=== PATIENT | female | born 1990 | race Caucasian/White ===

== ENCOUNTER 2016-04-29 11:18 | Emergency (ER) | payer OTHER ==
[~2016-04-29] VITALS: Ht 162.6 cm; Wt 80.0 kg
[~2016-04-29 11:18] MED LIST: HYDR-3533 PO; LEVE750T8 PO; ONDA4 PO
[2016-04-29 11:19] VITALS: BP 129/68; PULSE 66; RESP 16; TEMP 98.1; O2SAT 98
--- NOTE | 2016-04-29 11:43 | PD ---
HPI Chief Complaint: Abdominal Pain Time Seen by Provider: 11:43 Travel History International Travel<30 days: No Contact w/Intl Traveler<30days: No Traveled to known affect area: No History of Present Illness HPI 25 year-old female with history of epilepsy presents to the emergency department for evaluation of constipation, nausea vomiting worsening over the last 4 days. Patient states this happens every few months to her. Reports generalized abdominal pain with no exacerbating or alleviating factors. States she has been unable to take her Keppra for 4 days due to the nausea and vomiting. Stool and emesis is without any dorian red blood. No coffee-ground emesis. No black tarry stools. Subjective fever and chills. No chest pain or tightness. No difficulty breathing. No other symptoms to report at this time. PFSH Past Medical History Arthritis: No Asthma: No Anxiety: No Depression: No Heart Rhythm Problems: No Cancer: No Cardiovascular Problems: No High Cholesterol: No Chest Pain: No Congestive Heart Failure: No COPD: No Cerebrovascular Accident: No Diabetes: No Diminished Hearing: No Endocrine: No Gastrointestinal Disorders: Yes GERD: No Genitourinary: No Hiatal Hernia: No Immune Disorder: No Implanted Vascular Access Dvce: No Musculoskeletal: No Neurologic: Yes (EPILEPSY) Psychiatric: No Reproductive: No Respiratory: No Immunizations Current: Yes Migraines: No Seizures: Yes Sleep Apnea: No Thyroid Disease: No Ulcer: No ?: Not LMP: 04/20/16 : 1 Para: 1 Past Surgical History Abdominal Surgery: No Cardiac Surgery: No Ear Surgery: No Endocrine Surgery: No Eye Surgery: No Genitourinary Surgery: No Gynecologic Surgery: No Oral Surgery: Yes (tonisills, adenoids) Thoracic Surgery: No Tonsillectomy: Yes (& adenoids ) Other Surgery: Yes Social History Alcohol Use: No Tobacco Use: No Substance Use: Yes (MARIJUANA ) Allergies-Medications (Allergen,Severity, Reaction): Coded Allergies: No Known Allergies (Verified , 04/29/16) Reported Meds & Prescriptions Reported Meds & Active Scripts Active Phenergan (Promethazine HCl) 25 Mg Tab 25 Mg PO Q6H PRN 3 Days Reported Keppra (Levetiracetam) 750 Mg Tab 750 Mg PO BID Review of Systems Except as stated in HPI: all other systems reviewed are Neg Physical Exam Narrative GENERAL: Well-nourished female patient, lying in a position, tearful SKIN: Warm and dry. HEAD: Atraumatic. Normocephalic. EYES: Pupils equal and round. No scleral icterus. No injection or drainage. ENT: No nasal bleeding or discharge. Mucous membranes pink and moist. NECK: Trachea midline. No JVD. CARDIOVASCULAR: Regular rate and rhythm. No murmur appreciated. RESPIRATORY: No accessory muscle use. Clear to auscultation. Breath sounds equal bilaterally. GASTROINTESTINAL: Abdomen soft, nondistended. Patient reports inconsistent but generalized tenderness to palpation.. Hepatic and splenic margins not palpable. MUSCULOSKELETAL: No obvious deformities. No clubbing. No cyanosis. No edema. NEUROLOGICAL: Awake and alert. No obvious cranial nerve deficits. Motor grossly within normal limits. Normal speech. Data Data Last Documented VS Vital Signs Date Time Temp Pulse Resp B/P Pulse Ox O2 Delivery O2 Flow Rate FiO2 04/29/16 18:30 66 16 140/74 98 04/29/16 16:28 Room Air 04/29/16 11:19 98.1 Orders Complete Blood Count With Diff (04/29/16 11:38) Comprehensive Metabolic Panel (04/29/16 11:38) Lipase (04/29/16 11:38) Prothrombin Time / Inr (Pt) (04/29/16 11:38) Act Partial Throm Time (Ptt) (04/29/16 11:38) Urinalysis - C+S If Indicated (04/29/16 11:38) Abdomen, Flat & Upright (04/29/16 ) Ed Urine Pregnancytest Poc (04/29/16 11:38) Influenzae A/B Antigen (04/29/16 11:38) Gc And Chlamydia Pcr (04/29/16 11:50) Ondansetron Inj (Zofran Inj) (04/29/16 12:30) Sodium Chlor 0.9% 1000 Ml Inj (Ns 1000 M (04/29/16 12:25) Sodium Chloride 0.9% Flush (Ns Flush) (04/29/16 12:30) Levetiracetam 1000 Mg Inj (Keppra 1000 M (04/29/16 12:30) Levetiracetam Inj (Keppra Inj) (04/29/16 12:30) Sucralfate Liq (Carafate Liq) (04/29/16 12:45) Ct Abd/Pel W Iv Contrast(Rout) (04/29/16 12:40) Potassium Chlor 20 Meq Premix (Kcl 20 Me (04/29/16 13:15) Iohexol 350 Inj (Omnipaque 350 Inj) (04/29/16 13:54) Urine Culture (04/29/16 14:15) Sodium Chlor 0.9% 1000 Ml Inj (Ns 1000 M (04/29/16 14:45) Dicyclomine (Bentyl) (04/29/16 15:00) Promethazine Inj (Phenergan Inj) (04/29/16 15:15) Potassium Chloride (Kcl) (04/29/16 17:45) Labs Laboratory Tests Test 04/29/16 04/29/16 11:55 14:15 White Blood Count 14.7 TH/MM3 Red Blood Count 5.36 MIL/MM3 Hemoglobin 15.6 GM/DL Hematocrit 46.3 % Mean Corpuscular Volume 86.3 FL Mean Corpuscular Hemoglobin 29.1 PG Mean Corpuscular Hemoglobin 33.7 % Concent Red Cell Distribution Width 13.9 % Platelet Count 308 TH/MM3 Mean Platelet Volume 8.9 FL Neutrophils (%) (Auto) 88.1 % Lymphocytes (%) (Auto) 8.7 % Monocytes (%) (Auto) 3.0 % Eosinophils (%) (Auto) 0.0 % Basophils (%) (Auto) 0.2 % Neutrophils # (Auto) 13.0 TH/MM3 Lymphocytes # (Auto) 1.3 TH/MM3 Monocytes # (Auto) 0.4 TH/MM3 Eosinophils # (Auto) 0.0 TH/MM3 Basophils # (Auto) 0.0 TH/MM3 CBC Comment DIFF FINAL Differential Comment Prothrombin Time 12.0 SEC Prothromb Time International 1.1 RATIO Ratio Activated Partial 28.5 SEC Thromboplast Time Sodium Level 135 MEQ/L Potassium Level 3.1 MEQ/L Chloride Level 100 MEQ/L Carbon Dioxide Level 23.7 MEQ/L Anion Gap 11 MEQ/L Blood Urea Nitrogen 16 MG/DL Creatinine 0.94 MG/DL Estimat Glomerular Filtration 73 ML/MIN Rate Random Glucose 94 MG/DL Calcium Level 9.6 MG/DL Total Bilirubin 0.6 MG/DL Aspartate Amino Transf 11 U/L (AST/SGOT) Alanine Aminotransferase 18 U/L (ALT/SGPT) Alkaline Phosphatase 100 U/L Total Protein 9.2 GM/DL Albumin 5.1 GM/DL Lipase 122 U/L Urine Color YELLOW Urine Turbidity CLEAR Urine pH 8.0 Urine Specific [place] GREATER THAN 1.050 Urine Protein 30 mg/dL Urine Glucose (UA) NEG mg/dL Urine Ketones 150 mg/dL Urine Occult Blood NEG Urine Nitrite NEG Urine Bilirubin NEG Urine Urobilinogen 2.0 MG/DL Urine Leukocyte Esterase NEG Urine RBC 4 /hpf Urine WBC 1 /hpf Urine WBC Clumps RARE Urine Squamous Epithelial 7 /hpf Cells Urine Transitional Epithelial <1 /hpf Cells Urine Bacteria OCC /hpf Urine Mucus FEW /lpf Microscopic Urinalysis Comment CATH-CULTURE IND MDM Medical Decision Making Medical Screen Exam Complete: Yes Emergency Medical Condition: Yes Medical Record Reviewed: Yes Differential Diagnosis Constipation versus appendicitis versus intractable nausea and vomiting versus UTI Narrative Course 25 year-old female presents to the emergency department. Workup was initiated in triage. Once a medical bed available, patient will be transferred and care assumed by the provider. Scripts Promethazine (Phenergan)25 Mg Tab25 Mg PO Q6H PRN (Nausea/Vomiting) 3 Days Ref 0 Prov:Pamela Mosqueda 04/29/16 Condition: Stable Poppy Cruz Apr 29, 2016 11:43
[2016-04-29 12:15] LABS: BASOPHIL % 0.2 % (0.0-2.0); HEMATOCRIT 46.3 % (35.0-46.0); HEMO FLAGS DIFF FINAL; LYMPH % 8.7 % (9.0-44.0); LYMPHOCYTE # 1.3 TH/MM3 (1.0-4.8); MEAN CELL VOLUME 86.3 FL (80.0-100.0); MEAN CORPUSCULAR HEMOGLOBIN 29.1 PG (27.0-34.0); MEAN CORPUSCULAR HGB CONC 33.7 % (32.0-36.0); NEUT % 88.1 % (16.0-70.0); PLATELET COUNT 308 TH/MM3 (150-450); RED BLOOD COUNT 5.36 MIL/MM3 (4.00-5.30); RED CELL DISTRIBUTION WIDTH 13.9 % (11.6-17.2); WHITE BLOOD COUNT 14.7 TH/MM3 (4.0-11.0)
--- NOTE | 2016-04-29 12:19 | RADRPT ---
EXAM DATE/TIME: 04/29/2016 12:13 [facility] COMPARISON: ABDOMEN FLAT & UPRIGHT, January 14, 2014, 14:40. INDICATIONS : Patient has been constipated and vomiting for three days. MEDICAL HISTORY : Seizures SURGICAL HISTORY : None. ENCOUNTER: Initial ACUITY: 3 days PAIN SCORE: 8/10 LOCATION: Abdomen. FINDINGS: Supine and upright views of the abdomen were performed. The abdominal bowel gas pattern is normal. No air fluid levels are seen. No abnormal masses, calcifications, or organomegaly is seen. The visu alized lower lungs are clear. No evidence of free intraperitoneal gas. The osseous structures are u nremarkable. CONCLUSION: Non-specific abdomen. I do not see significant stool. Ranjan Jean Baptiste MD FACR on April 29, 2016 at 12:17 Board Certified Radiologist. This report was verified electronically.
[2016-04-29 12:25] LABS: APTT (PATIENT) 28.5 SEC (24.3-30.1); INTERNATIONAL NORMALIZED RATIO 1.1 RATIO
[2016-04-29] MEDS ORDERED: SODIUM CHLOR 0.9% 1000 ML INJ 1,000 ML IV ONE ×2 (12:25→14:45)
[2016-04-29] MEDS ORDERED: levETIRAcetam INJ 500 MG in SODIUM CHLORIDE 0.9% INJ 100 ML IV ONE (12:30)
[2016-04-29] MEDS ORDERED: SODIUM CHLORIDE 0.9% FLUSH 5 ML FLUSH IVF PRN (12:30)
[2016-04-29] MEDS ORDERED: ONDANSETRON HCL 4 MG/2 ML VIAL IVP ONE (12:30)
[2016-04-29] MEDS ORDERED: levETIRAcetam 1000 MG INJ 100 ML IV ONE (12:30)
[2016-04-29 12:32] LABS: ALKALINE PHOSPHATASE 100 U/L (45-117); ALT (GPT) 18 U/L (10-53); ANION GAP 11 MEQ/L (5-15); AST (GOT) 11 U/L (15-37); BICARBONATE 23.7 MEQ/L (21.0-32.0); BLOOD UREA NITROGEN 16 MG/DL (7-18); CHLORIDE 100 MEQ/L (98-107); GLOMERULAR FILTRATION RATE 73 ML/MIN (>89); POTASSIUM 3.1 MEQ/L (3.5-5.1); SODIUM (NA) 135 MEQ/L (136-145); TOTAL BILIRUBIN ADULT 0.6 MG/DL (0.2-1.0)
--- NOTE | 2016-04-29 12:36 | PD ---
Physical Exam Date Seen by Provider: Apr 29, 2016 Narrative Workup was initiated in triage, for full history and physical examination please see previous provider's note. I assumed care of this patient when she was transferred to a medical bed. Data Data Last Documented VS Vital Signs Date Time Temp Pulse Resp B/P Pulse Ox O2 Delivery O2 Flow Rate FiO2 04/29/16 16:28 61 15 142/77 99 Room Air 04/29/16 11:19 98.1 Orders Complete Blood Count With Diff (04/29/16 11:38) Comprehensive Metabolic Panel (04/29/16 11:38) Lipase (04/29/16 11:38) Prothrombin Time / Inr (Pt) (04/29/16 11:38) Act Partial Throm Time (Ptt) (04/29/16 11:38) Urinalysis - C+S If Indicated (04/29/16 11:38) Abdomen, Flat & Upright (04/29/16 ) Ed Urine Pregnancytest Poc (04/29/16 11:38) Influenzae A/B Antigen (04/29/16 11:38) Gc And Chlamydia Pcr (04/29/16 11:50) Ondansetron Inj (Zofran Inj) (04/29/16 12:30) Sodium Chlor 0.9% 1000 Ml Inj (Ns 1000 M (04/29/16 12:25) Sodium Chloride 0.9% Flush (Ns Flush) (04/29/16 12:30) Levetiracetam 1000 Mg Inj (Keppra 1000 M (04/29/16 12:30) Levetiracetam Inj (Keppra Inj) (04/29/16 12:30) Sucralfate Liq (Carafate Liq) (04/29/16 12:45) Ct Abd/Pel W Iv Contrast(Rout) (04/29/16 12:40) Potassium Chlor 20 Meq Premix (Kcl 20 Me (04/29/16 13:15) Iohexol 350 Inj (Omnipaque 350 Inj) (04/29/16 13:54) Urine Culture (04/29/16 14:15) Sodium Chlor 0.9% 1000 Ml Inj (Ns 1000 M (04/29/16 14:45) Dicyclomine (Bentyl) (04/29/16 15:00) Promethazine Inj (Phenergan Inj) (04/29/16 15:15) Labs Laboratory Tests Test 04/29/16 04/29/16 11:55 14:15 White Blood Count 14.7 TH/MM3 Red Blood Count 5.36 MIL/MM3 Hemoglobin 15.6 GM/DL Hematocrit 46.3 % Mean Corpuscular Volume 86.3 FL Mean Corpuscular Hemoglobin 29.1 PG Mean Corpuscular Hemoglobin 33.7 % Concent Red Cell Distribution Width 13.9 % Platelet Count 308 TH/MM3 Mean Platelet Volume 8.9 FL Neutrophils (%) (Auto) 88.1 % Lymphocytes (%) (Auto) 8.7 % Monocytes (%) (Auto) 3.0 % Eosinophils (%) (Auto) 0.0 % Basophils (%) (Auto) 0.2 % Neutrophils # (Auto) 13.0 TH/MM3 Lymphocytes # (Auto) 1.3 TH/MM3 Monocytes # (Auto) 0.4 TH/MM3 Eosinophils # (Auto) 0.0 TH/MM3 Basophils # (Auto) 0.0 TH/MM3 CBC Comment DIFF FINAL Differential Comment Prothrombin Time 12.0 SEC Prothromb Time International 1.1 RATIO Ratio Activated Partial 28.5 SEC Thromboplast Time Sodium Level 135 MEQ/L Potassium Level 3.1 MEQ/L Chloride Level 100 MEQ/L Carbon Dioxide Level 23.7 MEQ/L Anion Gap 11 MEQ/L Blood Urea Nitrogen 16 MG/DL Creatinine 0.94 MG/DL Estimat Glomerular Filtration 73 ML/MIN Rate Random Glucose 94 MG/DL Calcium Level 9.6 MG/DL Total Bilirubin 0.6 MG/DL Aspartate Amino Transf 11 U/L (AST/SGOT) Alanine Aminotransferase 18 U/L (ALT/SGPT) Alkaline Phosphatase 100 U/L Total Protein 9.2 GM/DL Albumin 5.1 GM/DL Lipase 122 U/L Urine Color YELLOW Urine Turbidity CLEAR Urine pH 8.0 Urine Specific [place] GREATER THAN 1.050 Urine Protein 30 mg/dL Urine Glucose (UA) NEG mg/dL Urine Ketones 150 mg/dL Urine Occult Blood NEG Urine Nitrite NEG Urine Bilirubin NEG Urine Urobilinogen 2.0 MG/DL Urine Leukocyte Esterase NEG Urine RBC 4 /hpf Urine WBC 1 /hpf Urine WBC Clumps RARE Urine Squamous Epithelial 7 /hpf Cells Urine Transitional Epithelial <1 /hpf Cells Urine Bacteria OCC /hpf Urine Mucus FEW /lpf Microscopic Urinalysis Comment CATH-CULTURE IND [facility] Medical Record Reviewed: Yes Supervised Visit with COREY: No Interpretation(s) Vital Signs Date Time Temp Pulse Resp B/P Pulse Ox O2 Delivery O2 Flow Rate FiO2 04/29/16 11:19 98.1 66 16 129/68 98 Room Air Differential Diagnosis Colitis versus gastroenteritis versus influenza versus bowel obstruction versus other Narrative Course Patient is a 25-year-old female presenting to the emergency department for evaluation of abdominal pain, nausea, vomiting. Patient's symptoms have been ongoing since Wednesday. She rates her abdominal pain an 8/10 in the epigastric region. Patient states she's been trying to take sips of water but been projectile vomits. She denies any bloody emesis, black car-like stools. She has no documented fevers at home. Patient has a history of epilepsy, she has not taken her seizure medication 4 days secondary to the vomiting. She is on Keppra 750 mg 2 tablets twice daily. Patient will be given loading dose of Keppra IV now. Zofran, IV fluids ordered. CT scan of the abdomen and pelvis ordered and pending. Patient reports a colonoscopy and upper endoscopy approximately one year ago. She states that they thought she may have colitis. Plan of care discussed with my attending physician. POC Urine is negative CBC shows an elevated white count with left shift at 14.7 and 88.1 Chemistry is unremarkable other than a potassium of 3.1, IV and oral replacement ordered Abdominal x-ray shows nonspecific abdomen, no significant stool noted. CT scan of the abdomen and pelvis is negative for acute abnormality Influenza is negative Urinalysis shows concentrated urine, rare white blood cell clumps, occasional bacteria and few mucus, 4 red blood cells, this was a straight catheter specimen. Reflex culture pending. 1505- patient reassessed, patient was observed sleeping soundly. She stated that she was nauseated and still having abdominal pain. Bentyl and Phenergan ordered. 1630- patient was observed sleeping comfortably, she has not vomited since she' s been in the emergency department. Patient given Gatorade, she is tolerating by mouth intake. 1730- patient reports improvement, patient will be discharged home. She was encouraged to maintain him bland low-residue diet, increasing as tolerated. She was encouraged follow-up with her primary care provider or with a tree trimmer. She was encouraged to return to emergency department for any new or worsening symptoms. She verbalized understanding of instructions. Patient is stable for discharge. Diagnosis Primary Impression: Nausea and vomiting Qualified Code: R11.2 - Non-intractable vomiting with nausea, unspecified vomiting type Additional Impressions: Gastroenteritis Hypokalemia, gastrointestinal losses Referrals: Design [employer] Teacher Primary Care Physician Patient Instructions: Acute Nausea and Vomiting (ED), Diet for Stomach Ulcers and Gastritis (GEN), Gastroenteritis (ED), General Instructions Additional Instruction: Follow-up with your primary doctor Follow-up with a tree trimmer Maintain a bland, easy to digest diet, increasing as tolerated Maintain adequate fluid intake Take medications as directed Return to emergency department for any new or worsening symptoms Med/Other Pt SpecificInfo: Prescription(s) given Scripts Promethazine (Phenergan)25 Mg Tab25 Mg PO Q6H PRN (Nausea/Vomiting) 3 Days Ref 0 Prov:Pamela Mosqueda 04/29/16 Disposition: 01 DISCHARGE HOME Condition: Stable Pamela Mosqueda Apr 29, 2016 12:36
[2016-04-29] MEDS ORDERED: SUCRALFATE 1 GM/10 ML CUP PO ONE (12:45)
[2016-04-29 12:57] VITALS: BP 133/71; PULSE 68; RESP 19; O2SAT 100
[2016-04-29] MEDS ORDERED: KEPP750T PO (13:01)
[2016-04-29] MEDS ORDERED: POTASSIUM CHLOR 20 MEQ PREMIX 100 ML IV ONE (13:15)
[2016-04-29] MEDS ORDERED: IOHEXOL 350 MG/ML 10 ML VIAL (for RAD DIAG) IV ONE (13:54)
[2016-04-29 14:33] LABS: BACTERIA, URINE OCC /hpf; BLOOD, URINE NEG (NEG); COMMENT (UR) CATH-CULTURE IND; CULTURE IF INDICATED CATH CULTURE IND; GLUCOSE,URINE NEG (NEG); KETONE, URINE 150 mg/dL (NEG); MUCUS URINE FEW /lpf (OCC); NITRITE,URINE NEG (NEG); SQUAMOUS EPITHELIAL CELL URINE 7 /hpf (0-5); TRANSITIONAL EPI CELLS, URINE <1 /hpf; URINE COLOR YELLOW (YELLW/STRAW)
[2016-04-29 14:34] VITALS: BP 140/76; PULSE 84; RESP 18; O2SAT 100
--- NOTE | 2016-04-29 14:35 | RADRPT ---
EXAM DATE/TIME: 04/29/2016 13:45 [facility] COMPARISON: CT ABDOMEN & PELVIS W CONTRAST, January 29, 2015, 23:09. INDICATIONS : Nausea and vomiting with abdominal pain IV CONTRAST: 76 cc Omnipaque 350 (iohexol) IV ORAL CONTRAST: No oral contrast ingested. RADIATION DOSE: 7.08 CTDIvol (mGy) MEDICAL HISTORY : Seizures. SURGICAL HISTORY : None. ENCOUNTER: Initial ACUITY: 1 day PAIN SCALE: 9/10 LOCATION: Diffuse abdomen pain TECHNIQUE: Volumetric scanning of the abdomen and pelvis was performed. Using automated exposure control and ad justment of the mA and/or kV according to patient size, radiation dose was kept as low as reasonably achievable to obtain optimal diagnostic quality images. FINDINGS: The lung bases are clear. There is moderate fatty replacement to the liver. Spleen, pancreas and ad renals are unremarkable. There is symmetrical renal function. Region of the cecum and terminal ileum appear unremarkable. Uterus is unremarkable. There is no adenopathy appreciated. Review of bone windows reveals only degenerative changes. CONCLUSION: I do not see any etiology for the patient's nausea and abdominal pain. Ranjan Jean Baptiste MD FACR on April 29, 2016 at 14:01 Board Certified Radiologist. This report was verified electronically.
[2016-04-29] MEDS ORDERED: DICYCLOMINE HCL 10 MG CAP PO ONE (15:00)
[2016-04-29] MEDS ORDERED: PROMETHAZINE INJ 25 MG/ML VIAL IM ONE (15:15)
[2016-04-29 16:28] VITALS: BP 142/77; PULSE 61; RESP 15; O2SAT 99
[2016-04-29] MEDS ORDERED: PROM25TA5 PO (17:32)
[2016-04-29] MEDS ORDERED: POTASSIUM CHLORIDE 10 MEQ CONTROLLED RELEASE TAB PO ONE (17:45)
[2016-04-29 18:30] VITALS: BP 140/74
[2016-04-30 06:20] LABS: CHLAMYDIA PCR NOT DETECTED (NOT DETECT); NEISSERIA PCR NOT DETECTED (NOT DETECT)
== END 2016-04-29 18:32 | disposition home or self-care (01) ==
LOC: NEPE 11:18
DX: R11.2 Nausea with vomiting, unspecified (principal); K52.9 Noninfective gastroenteritis and colitis, unspecified; E87.6 Hypokalemia; K59.00 Constipation, unspecified; G40.909 Epilepsy, unspecified, not intractable, without status epilepticus; R10.84 Generalized abdominal pain
CPT/HCPCS: 74020; 74177; 80053; 81001; 83690; 84703; 85025; 85610; 85730; 87086; 87491; 87591; 87804; 96365; 96366; 96367; 96372; 96375; 99284; J1953; J2405; J2550; J3480; J7030; Q9967

== ENCOUNTER 2016-09-07 13:24 | Emergency (ER) | payer OTHER ==
[~2016-09-07] VITALS: Ht 165.1 cm; Wt 65.0 kg
[~2016-09-07 13:24] MED LIST changes: -HYDR-3533 PO; +KEPP750T PO; -LEVE750T8 PO; -ONDA4 PO
[2016-09-07 14:19] LABS: AUTOMATED NEUTROPHIL # 4.5 TH/MM3 (1.8-7.7); BASOPHIL % 0.5 % (0.0-2.0); EOSINOPHIL # 0.1 TH/MM3 (0-0.4); EOSINOPHIL % 1.4 % (0.0-4.0); HEMATOCRIT 39.2 % (35.0-46.0); HEMO FLAGS DIFF FINAL; LYMPH % 32.2 % (9.0-44.0); LYMPHOCYTE # 2.5 TH/MM3 (1.0-4.8); MEAN CELL VOLUME 87.9 FL (80.0-100.0); MEAN CORPUSCULAR HEMOGLOBIN 29.4 PG (27.0-34.0); MEAN CORPUSCULAR HGB CONC 33.4 % (32.0-36.0); MONO % 8.1 % (0.0-8.0); NEUT % 57.8 % (16.0-70.0); PLATELET COUNT 249 TH/MM3 (150-450); RED BLOOD COUNT 4.45 MIL/MM3 (4.00-5.30); RED CELL DISTRIBUTION WIDTH 14.1 % (11.6-17.2); WHITE BLOOD COUNT 7.9 TH/MM3 (4.0-11.0)
--- NOTE | 2016-09-07 14:35 | PD ---
HPI Chief Complaint: Seizure Time Seen by Provider: 14:00 Travel History International Travel<30 days: No Contact w/Intl Traveler<30days: No Traveled to known affect area: No History of Present Illness HPI Patient's 26-year-old female presented to the emergency for evaluation after experiencing a seizure at home just prior to arrival. Patient has a history of seizures, she reports taking her Keppra later than normal today. She reports having petit mall seizures and or is at least once a month, she has not had a grand mal seizure in over a year. She is followed by Dr. Jackson. Patient states that she has been more stressed, they were evicted from their apartment and she is uncertain where she will live. She denies any pain, dysuria, fevers , chills, headaches. Does endorse occasional marijuana use. Patient felt the aura and laid on the bed. She did bite her tongue but sustained no other injuries. PFSH Past Medical History Arthritis: No Asthma: No Anxiety: No Depression: No Heart Rhythm Problems: No Cancer: No Cardiovascular Problems: No High Cholesterol: No Chest Pain: No Congestive Heart Failure: No COPD: No Cerebrovascular Accident: No Diabetes: No Diminished Hearing: No Endocrine: No Gastrointestinal Disorders: Yes GERD: No Genitourinary: No Hiatal Hernia: No Immune Disorder: No Implanted Vascular Access Dvce: No Musculoskeletal: No Neurologic: Yes (EPILEPSY) Psychiatric: No Reproductive: No Respiratory: No Immunizations Current: Yes Migraines: No Seizures: Yes Sleep Apnea: No Thyroid Disease: No Ulcer: No ?: Unknown : 1 Para: 1 Past Surgical History Abdominal Surgery: No Cardiac Surgery: No Ear Surgery: No Endocrine Surgery: No Eye Surgery: No Genitourinary Surgery: No Gynecologic Surgery: No Oral Surgery: Yes (tonisills, adenoids) Thoracic Surgery: No Tonsillectomy: Yes (& adenoids ) Other Surgery: Yes Social History Alcohol Use: No Tobacco Use: No Substance Use: Yes (MARIJUANA ) Allergies-Medications (Allergen,Severity, Reaction): Coded Allergies: No Known Allergies (Verified , 05/26/16) Reported Meds & Prescriptions Reported Meds & Active Scripts Active Reported Keppra (Levetiracetam) 750 Mg Tab 750 Mg PO BID Review of Systems Except as stated in HPI: all other systems reviewed are Neg Neurologic: No: Dizziness, Focal Abnormalities, Change in Mentation, Slurred Speech, Paresthesia, Sensory Disturbance Physical Exam Narrative GENERAL: Well-developed, well-nourished, alert female. Resting comfortably in no acute distress. SKIN: Warm and dry. HEAD: Atraumatic. Normocephalic. EYES: Pupils equal and round. No scleral icterus. No injection or drainage. ENT: No nasal bleeding or discharge. Mucous membranes pink and moist. NECK: Trachea midline. No JVD. CARDIOVASCULAR: Regular rate and rhythm. RESPIRATORY: No accessory muscle use. Clear to auscultation. Breath sounds equal bilaterally. GASTROINTESTINAL: Abdomen soft, non-tender, nondistended. Hepatic and splenic margins not palpable. MUSCULOSKELETAL: Extremities without clubbing, cyanosis, or edema. No obvious deformities. NEUROLOGICAL: Awake and alert. No obvious cranial nerve deficits. Motor grossly within normal limits. Five out of 5 muscle strength in the arms and legs. Normal speech. PSYCHIATRIC: Appropriate mood and affect; insight and judgment normal. Data Data Last Documented VS Vital Signs Date Time Temp Pulse Resp B/P Pulse Ox O2 Delivery O2 Flow Rate FiO2 09/07/16 13:30 15 98 Room Air Orders Complete Blood Count With Diff (09/07/16 14:06) Blood Glucose (09/07/16 14:06) Ecg Monitoring (09/07/16 14:06) Iv Access Insert/Monitor (09/07/16 14:06) Oximetry (09/07/16 14:06) Comprehensive Metabolic Panel (09/07/16 14:06) Sodium Chloride 0.9% Flush (Ns Flush) (09/07/16 14:15) Urinalysis - C+S If Indicated (09/07/16 14:06) Acetaminophen (Tylenol) (09/07/16 16:15) Labs Laboratory Tests Test 09/07/16 13:50 White Blood Count 7.9 TH/MM3 Red Blood Count 4.45 MIL/MM3 Hemoglobin 13.1 GM/DL Hematocrit 39.2 % Mean Corpuscular Volume 87.9 FL Mean Corpuscular Hemoglobin 29.4 PG Mean Corpuscular Hemoglobin 33.4 % Concent Red Cell Distribution Width 14.1 % Platelet Count 249 TH/MM3 Mean Platelet Volume 9.2 FL Neutrophils (%) (Auto) 57.8 % Lymphocytes (%) (Auto) 32.2 % Monocytes (%) (Auto) 8.1 % Eosinophils (%) (Auto) 1.4 % Basophils (%) (Auto) 0.5 % Neutrophils # (Auto) 4.5 TH/MM3 Lymphocytes # (Auto) 2.5 TH/MM3 Monocytes # (Auto) 0.6 TH/MM3 Eosinophils # (Auto) 0.1 TH/MM3 Basophils # (Auto) 0.0 TH/MM3 CBC Comment DIFF FINAL Differential Comment Sodium Level 141 MEQ/L Potassium Level 4.8 MEQ/L Chloride Level 109 MEQ/L Carbon Dioxide Level 22.2 MEQ/L Anion Gap 10 MEQ/L Blood Urea Nitrogen 10 MG/DL Creatinine 0.79 MG/DL Estimat Glomerular Filtration 88 ML/MIN Rate Random Glucose 77 MG/DL Calcium Level 8.5 MG/DL Total Bilirubin 0.3 MG/DL Aspartate Amino Transf 34 U/L (AST/SGOT) Alanine Aminotransferase 19 U/L (ALT/SGPT) Alkaline Phosphatase 63 U/L Total Protein 6.8 GM/DL Albumin 3.7 GM/DL MDM Medical Decision Making Medical Screen Exam Complete: Yes Emergency Medical Condition: Yes Interpretation(s) Vital Signs Date Time Temp Pulse Resp B/P Pulse Ox O2 Delivery O2 Flow Rate FiO2 09/07/16 13:30 15 98 Room Air Differential Diagnosis Seizure disorder versus electrolyte abnormality versus UTI versus other Narrative Course Patient is a 26-year-old female that presented to him or to return after a seizure that occurred prior to arrival. Patient is a history of the same. She took her Keppra later than normal today. Her vital signs are stable. Labs are ordered and pending. Care of patient has been transferred to Shamika MIJARES when patient was transferred from the ambulance call to a medical bed. She will determine patient's disposition. Patient has not had a seizure while in the emergency department. Pamela Mosqueda Sep 07, 2016 14:35
[2016-09-07 15:00] LABS: ALKALINE PHOSPHATASE 63 U/L (45-117); TOTAL BILIRUBIN ADULT 0.3 MG/DL (0.2-1.0)
[2016-09-07 15:06] LABS: ALT (GPT) 19 U/L (10-53); ANION GAP 10 MEQ/L (5-15); AST (GOT) 34 U/L (15-37); BICARBONATE 22.2 MEQ/L (21.0-32.0); BLOOD UREA NITROGEN 10 MG/DL (7-18); CHLORIDE 109 MEQ/L (98-107); GLOMERULAR FILTRATION RATE 88 ML/MIN (>89); SODIUM (NA) 141 MEQ/L (136-145)
[2016-09-07 15:10] LABS: POTASSIUM 4.8 MEQ/L (3.5-5.1)
[2016-09-07] MEDS ORDERED: ACETAMINOPHEN 325 MG TAB PO ONE (16:15)
--- NOTE | 2016-09-07 16:31 | PD ---
Physical Exam Time Seen by Provider: 16:29 Narrative I received report from DYLLAN Ellis. See her note for initial assessment, evaluation, and orders. Data Data Last Documented VS Vital Signs Date Time Temp Pulse Resp B/P Pulse Ox O2 Delivery O2 Flow Rate FiO2 09/07/16 16:43 66 18 116/55 99 Room Air Orders Complete Blood Count With Diff (09/07/16 14:06) Blood Glucose (09/07/16 14:06) Ecg Monitoring (09/07/16 14:06) Iv Access Insert/Monitor (09/07/16 14:06) Oximetry (09/07/16 14:06) Comprehensive Metabolic Panel (09/07/16 14:06) Sodium Chloride 0.9% Flush (Ns Flush) (09/07/16 14:15) Urinalysis - C+S If Indicated (09/07/16 14:06) Acetaminophen (Tylenol) (09/07/16 16:15) Ed Urine Pregnancytest Poc (09/07/16 16:37) Labs Laboratory Tests Test 09/07/16 09/07/16 13:50 16:30 White Blood Count 7.9 TH/MM3 Red Blood Count 4.45 MIL/MM3 Hemoglobin 13.1 GM/DL Hematocrit 39.2 % Mean Corpuscular Volume 87.9 FL Mean Corpuscular Hemoglobin 29.4 PG Mean Corpuscular Hemoglobin 33.4 % Concent Red Cell Distribution Width 14.1 % Platelet Count 249 TH/MM3 Mean Platelet Volume 9.2 FL Neutrophils (%) (Auto) 57.8 % Lymphocytes (%) (Auto) 32.2 % Monocytes (%) (Auto) 8.1 % Eosinophils (%) (Auto) 1.4 % Basophils (%) (Auto) 0.5 % Neutrophils # (Auto) 4.5 TH/MM3 Lymphocytes # (Auto) 2.5 TH/MM3 Monocytes # (Auto) 0.6 TH/MM3 Eosinophils # (Auto) 0.1 TH/MM3 Basophils # (Auto) 0.0 TH/MM3 CBC Comment DIFF FINAL Differential Comment Sodium Level 141 MEQ/L Potassium Level 4.8 MEQ/L Chloride Level 109 MEQ/L Carbon Dioxide Level 22.2 MEQ/L Anion Gap 10 MEQ/L Blood Urea Nitrogen 10 MG/DL Creatinine 0.79 MG/DL Estimat Glomerular Filtration 88 ML/MIN Rate Random Glucose 77 MG/DL Calcium Level 8.5 MG/DL Total Bilirubin 0.3 MG/DL Aspartate Amino Transf 34 U/L (AST/SGOT) Alanine Aminotransferase 19 U/L (ALT/SGPT) Alkaline Phosphatase 63 U/L Total Protein 6.8 GM/DL Albumin 3.7 GM/DL Urine Color YELLOW Urine Turbidity CLOUDY Urine pH 8.0 Urine Specific [place] 1.020 Urine Protein 30 mg/dL Urine Glucose (UA) NEG mg/dL Urine Ketones TRACE mg/dL Urine Occult Blood NEG Urine Nitrite NEG Urine Bilirubin NEG Urine Urobilinogen 2.0 MG/DL Urine Leukocyte Esterase NEG Urine RBC 12 /hpf Urine WBC 2 /hpf Urine Squamous Epithelial 6 /hpf Cells Urine Amorphous Sediment OCC Urine Mucus FEW /lpf Microscopic Urinalysis Comment CULT NOT INDICATED MDM Supervised Visit with COREY: Yes Narrative Course I received report from DYLLAN Ellis. See her note for initial assessment and evaluation. 1758: CBC, CMP, urinalysis unremarkable. Inserted patient to follow up with Dr. Jackson. Instructed patient to follow up with primary care provider. Patient verbalizes understanding and agreement with treatment plan. Patient is medically cleared and stable for discharge. Discussed reasons to return to the emergency department. Patient agrees with treatment plan. The patients vital signs are stable and the patient is stable for outpatient follow-up and treatment. Patient discharged home, stable and in no acute distress. Diagnosis Primary Impression: Seizure disorder Referrals: Neurologist Primary Care Physician Patient Instructions: General Instructions, Recurrent Seizures in Adults (ED) Departure Forms: Tests/Procedures, Work Release Enter return to work date: Sep 09, 2016 Additional Instruction: Limit/avoid alcohol intake Avoid known triggers Continue to take antiseizure medication as prescribed avoid adding new prescriptions, [id number] medications, dietary supplements, or herbal remedies without consulting your PCP or neurologist Keep a seizure diary and take to PCP and neurologist Follow-up with neurologist Follow-up with primary care provider within 1-2 days Return immediately to the emergency department, particularly if seizure lasting more than 5 minutes, high fever >100.4, sustained injury during seizure Med/Other Pt SpecificInfo: No Change to Meds, No Meds Exist/No RX given Disposition: DISCHARGE HOME Condition: Stable Shamika Oliva Sep 07, 2016 16:31
[2016-09-07] MEDS: SODIUM CHLORIDE 0.9% FLUSH 10 ML FLUSH IVF PRN ×2 (16:33→17:44)
[2016-09-07 16:34] VITALS: O2SAT 97
[2016-09-07 16:43] VITALS: BP 116/55; PULSE 66; RESP 18; O2SAT 99
[2016-09-07 17:04] LABS: BLOOD, URINE NEG (NEG); COMMENT (UR) CULT NOT INDICATED; CULTURE IF INDICATED CULT NOT INDICATED; GLUCOSE,URINE NEG (NEG); KETONE, URINE TRACE mg/dL (NEG); MUCUS URINE FEW /lpf (OCC); NITRITE,URINE NEG (NEG); SQUAMOUS EPITHELIAL CELL URINE 6 /hpf (0-5); URINE COLOR YELLOW (YELLW/STRAW)
== END 2016-09-07 19:15 | disposition home or self-care (01) ==
LOC: NEPD 13:24
DX: G40.909 Epilepsy, unspecified, not intractable, without status epilepticus (principal); Z79.899 Other long term (current) drug therapy
CPT/HCPCS: 80053; 81001; 84703; 85025; 99283

== ENCOUNTER 2016-12-13 11:26 | Emergency (ER) | payer MEDICAID, OTHER ==
[~2016-12-13] VITALS: Ht 160 cm; Wt 74.0 kg
[2016-12-13 11:40] VITALS: BP 126/58; PULSE 86; RESP 18; TEMP 98; O2SAT 98
[2016-12-13] MEDS ORDERED: TOPA25TA8 PO (11:48)
[2016-12-13] MEDS ORDERED: ONDANSETRON ODT 4 MG TAB PO ONE (12:00)
--- NOTE | 2016-12-13 12:01 | PD ---
HPI Chief Complaint: Seizure Time Seen by Provider: 11:39 Travel History International Travel<30 days: No Contact w/Intl Traveler<30days: No Traveled to known affect area: No History of Present Illness HPI 26-year-old female presents via EMS after having a witnessed seizure today. She has history of epilepsy and takes Keppra and Topamax as prescribed. Her neurologist is Dr. Liang. She says she's been having seizures about every month. She did have a seizure last month. When she fell she hit her head. She has a hematoma to her right scalp and complaining of headache. She reports nausea without vomiting. Denies neck pain or back pain. Denies chest pain, shortness of breath, abdominal pain. Denies incontinence of urine or stool. Symptoms are moderate in severity. No known relieving or aggravating factors. No known allergies. No other modifying factors or associated signs and symptoms. PFSH Past Medical History Arthritis: No Asthma: No Anxiety: No Depression: No Heart Rhythm Problems: No Cancer: No Cardiovascular Problems: No High Cholesterol: No Chest Pain: No Congestive Heart Failure: No COPD: No Cerebrovascular Accident: No Diabetes: No Diminished Hearing: No Endocrine: No Gastrointestinal Disorders: No GERD: No Genitourinary: No Headaches: No Hiatal Hernia: No Hypertension: No Immune Disorder: No Implanted Vascular Access Dvce: No Musculoskeletal: No Neurologic: Yes (EPILEPSY) Psychiatric: No Reproductive: No Respiratory: No Immunizations Current: Yes Migraines: No Seizures: Yes Sleep Apnea: No Thyroid Disease: No Ulcer: No ?: Unknown LMP: 9-20-17 : 1 Para: 1 Past Surgical History Abdominal Surgery: No Cardiac Surgery: No Ear Surgery: No Endocrine Surgery: No Eye Surgery: No Genitourinary Surgery: No Gynecologic Surgery: No Neurologic Surgery: No Oral Surgery: Yes (tonisills, adenoids) Thoracic Surgery: No Tonsillectomy: Yes (& adenoids ) Other Surgery: Yes Social History Alcohol Use: No Tobacco Use: No Substance Use: Yes (MARIJUANA daily) Allergies-Medications (Allergen,Severity, Reaction): Coded Allergies: No Known Allergies (Verified , 05/26/16) Reported Meds & Prescriptions Reported Meds & Active Scripts Active Reported Topamax (Topiramate) 25 Mg Tab 25 Mg PO BID Keppra (Levetiracetam) 750 Mg Tab 750 Mg PO BID Review of Systems Except as stated in HPI: all other systems reviewed are Neg Physical Exam Narrative GENERAL: Well-nourished, well-developed female patient, in no acute distress SKIN: Warm and dry. HEAD: Atraumatic. Normocephalic. Right frontal parietal scalp with moderate size hematoma. No facial or scalp abrasions or lacerations noted. EYES: Pupils equal and round at 3 mm with brisk reaction. No scleral icterus. No injection or drainage. No raccoon eyes. No orbital tenderness on palpation bilaterally. ENT: Mucosa pink and moist. No erythema or exudates. No uvular edema. No uvular , palatal, or tonsillar deviation. Airway patent. Nares without nasal blood, purulent drainage or septal hematoma. No rhinorrhea. EARS: Bilateral pinnae and external canals appear within normal limits. Bilateral tympanic membranes without erythema, dullness, hemotympanum or perforation. No otorrhea. No kinney signs. NECK: Moving freely. Trachea midline. No lymphadenopathy. No midline point tenderness to palpation of the cervical spine. Active rotation of the neck greater than 45 left and right. No obvious deformities. CHEST: No retractions or use of accessory muscles. CARDIOVASCULAR: Regular rate and rhythm. No murmur appreciated. RESPIRATORY: No accessory muscle use. Clear to auscultation. Breath sounds equal bilaterally. GASTROINTESTINAL: Abdomen soft, non-tender, nondistended. Hepatic and splenic margins not palpable. Bowel sounds are active 4 quadrants. MUSCULOSKELETAL: No obvious deformities. No clubbing. No cyanosis. No edema. BACK: No midline Point tenderness on palpation of the lumbar or thoracic spine. No obvious deformities. Patient sitting up in bed at 90. NEUROLOGICAL: Awake and alert. Oriented 3. No obvious cranial nerve deficits. Motor grossly within normal limits. Normal speech. Moves all extremities. 5/5 strength to all extremities. Sensory intact. PSYCHIATRIC: Appropriate mood and affect; insight and judgment normal. Data Data Last Documented VS Vital Signs Date Time Temp Pulse Resp B/P (MAP) Pulse Ox O2 Delivery O2 Flow Rate FiO2 12/13/16 12:02 18 98 Room Air 12/13/16 11:41 90 12/13/16 11:[address] Brain W/O Iv Contrast(Rout) (12/13/16 ) Ecg Monitoring (12/13/16 11:49) Oximetry (12/13/16 11:49) Ed Urine Pregnancytest Poc (12/13/16 11:49) Ondansetron Odt (Zofran Odt) (12/13/16 12:00) Acetaminophen (Tylenol) (12/13/16 12:30) Ketorolac Inj (Toradol Inj) (12/13/16 13:00) Ed Discharge Order (12/13/16 13:01) [facility] Medical Decision Making Medical Screen Exam Complete: Yes Emergency Medical Condition: Yes Medical Record Reviewed: Yes Differential Diagnosis Seizure, syncopal episode, electrolyte imbalance Narrative Course 26-year-old female with epilepsy presents via EMS after having a witnessed seizure. Her neurologist is Dr. Liang. She takes Topamax and Keppra as prescribed. She reports having continued seizures monthly. She did hit her head when she fell. I spoke with Dr. Chow, my attending physician, and he agrees with my treatment plan. UPT negative and CT head ordered. Tylenol and Zofran ordered. 1256: CT head concludes: Normal examination of the brain for a patient of this age. No significant change has occurred. The patient has been monitored for a little over an hour and is doing well. She is stable for discharge and is ready to be discharged. Toradol administered prior to discharge. Instructed patient to follow-up with neurologist. Instructed patient to continue medications as prescribed. Instructed patient to follow up with primary care provider. Patient verbalizes understanding and agreement with treatment plan. Patient is medically cleared and stable for discharge. Discussed reasons to return to the emergency department. Patient agrees with treatment plan. The patients vital signs are stable and the patient is stable for outpatient follow-up and treatment. Patient discharged home, stable and in no acute distress. Diagnosis Primary Impression: Seizure Referrals: Primary Care Physician Patient Instructions: Epilepsy (ED), General Instructions Additional Instructions: Limit/avoid alcohol intake Avoid known triggers Continue to take antiseizure medication as prescribed avoid adding new prescriptions, [id number] medications, dietary supplements, or herbal remedies without consulting your PCP or neurologist Keep a seizure diary and take to PCP and neurologist Follow-up with neurologist Follow-up with primary care provider within 1-2 days Return immediately to the emergency department with worsening of symptoms Med/Other Pt SpecificInfo: No Change to Meds, No Meds Exist/No RX given Disposition: 01 DISCHARGE HOME Condition: Stable Shamika Oliva Dec 13, 2016 12:01
[2016-12-13 12:02] VITALS: RESP 18; O2SAT 98
[2016-12-13] MEDS ORDERED: ACETAMINOPHEN 325 MG TAB PO ONE (12:30)
--- NOTE | 2016-12-13 12:47 | RADRPT ---
EXAM DATE/TIME: 12/13/2016 12:15 [facility] COMPARISON: CT BRAIN W/O CONTRAST, March 22, 2011, 21:10. INDICATIONS : Seizure, hematoma right forehead. RADIATION DOSE: 37.65 CTDIvol (mGy) MEDICAL HISTORY : Seizures. SURGICAL HISTORY : None. ENCOUNTER: Initial ACUITY: 1 day PAIN SCALE: 6/10 LOCATION: Right cranial TECHNIQUE: Multiple contiguous axial images were obtained of the head. Using automated exposure control and adj ustment of the mA and/or kV according to patient size, radiation dose was kept as low as reasonably a chievable to obtain optimal diagnostic quality images. DICOM format image data is available electro nically for review and comparison. FINDINGS: CEREBRUM: The ventricles are normal for age. No evidence of midline shift, mass lesion, hemorrhage or acute in farction. No extra-axial fluid collections are seen. POSTERIOR FOSSA: The cerebellum and brainstem are intact. The 4th ventricle is midline. The cerebellopontine angle i s unremarkable. EXTRACRANIAL: The visualized portion of the orbits is intact. Focal soft tissue swelling of the scalp along the rig ht frontal area. SKULL: The calvaria is intact. No evidence of skull fracture. CONCLUSION: Normal examination of the brain for a patient of this age. No significant change has occurred. Matt Stiles MD on December 13, 2016 at 12:45 Board Certified Radiologist. This report was verified electronically.
[2016-12-13] MEDS ORDERED: KETOROLAC TROMETHAMINE 30 MG/ML (IVP) VIAL IV PUSH ONE (13:00)
== END 2016-12-13 13:20 | disposition home or self-care (01) ==
LOC: NEPD 11:26
DX: G40.909 Epilepsy, unspecified, not intractable, without status epilepticus (principal)
CPT/HCPCS: 70450; 84703; 96374; 99285; J1885